=== PATIENT | female | born 1955 | race Caucasian/White ===

== ENCOUNTER → 2016-12-11 | Day surgery (SDC) | payer BC ==
[~2016-12-11] VITALS: Ht 167.6 cm; Wt 148.1 kg
[~2016-12-11] MED LIST: ALLERGY MEDICIN25 M1 PO; CALCIUM CARBON600 MG PO; JANUVIA 100 MG100 MG PO; METFORMIN HCL1000 M1 PO; TEKTURNA HCT 31 EAC1 PO; TOPROL XL100 MG PO; TYLENOL ARTHRI650 MG PO; TYLENOL WITH C1 EACH PO; ZOCOR40 MG PO; ZYRTEC10 M3 PO; ZYRTEC10 MG PO
--- NOTE | ~2016-12-11 | OR ---
PATIENT'S NAME: IAIN FRENCH [facility] AGE: 61 Y [address] 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 POSTOPERATIVE DIAGNOSIS: History of verrucous lesion, posterior pharynx. OPERATION/PROCEDURE: Direct laryngoscopy with biopsy, posterior hypopharynx. ANESTHESIA: General endotracheal anesthesia. ESTIMATED BLOOD LOSS: Minimal. COMPLICATIONS: None. DESCRIPTION OF PROCEDURE: The patient was taken to the operating room, laid in supine position with general endotracheal anesthesia. She was rotated 90 degrees to the right. Shoulder roll placed. Head was placed in a sniffing position. Mouth guard was placed on the upper dentition. The laryngoscope inserted within the oropharynx, directed down the posterior pharynx. The patient has a large amount of retained thick mucus occupying the posterior pharynx that was suctioned clean. The patient had a large verrucous lesion extending from the margin of the oral hypopharynx all the way down to the posterior arytenoid region. Occupied the entire posterior hypopharyngeal wall extending slightly and laterally on the left. There was no evidence of ulceration, it was hyperkeratotic. Several biopsies were obtained from the posterior pharynx just to the left of the midline. The patient tolerated the procedure well. Epiglottis was lifted anteriorly. The cords were visualized and noted to be normal. Laryngoscope was withdrawn. The patient was aroused, extubated, and discharged from the operating room to recovery room in satisfactory condition. BONIFACIO MARSH MD TVC/modl PATIENT'S NAME: IAIN FRENCH [facility] AGE: 61 Y [address] ROOM: [place] [id number] [place] [facility] [place]: 12/11/2016 OR/Procedure Report DISCHARGE DATE: FAMILY PHYSICIAN: Shyann Blankenship MD ATTENDING PHYSICIAN: Bonifacio Marsh V /[id number] d: 12/11/16 1203 t: 12/18/16 0720, OPERATIVE SUMMARY
== END | disposition disaster alternative care site (69) ==
LOC: GPOC 11-28 11:00 → GSDC 12-04 07:00
PROC: 0CBM8ZX Excision of Pharynx, Via Natural or Artificial Opening Endoscopic, Diagnostic (ICD-10-PCS; principal; 2016-12-11)
DX: J31.2 Chronic pharyngitis (principal); J02.9 Acute pharyngitis, unspecified; I10 Essential (primary) hypertension; E11.9 Type 2 diabetes mellitus without complications; E78.5 Hyperlipidemia, unspecified; Z88.8 Allergy status to other drugs, medicaments and biological substances; Z90.49 Acquired absence of other specified parts of digestive tract; Z98.1 Arthrodesis status; Z79.899 Other long term (current) drug therapy; Z98.890 Other specified postprocedural states
CPT/HCPCS: J0171; J7030